=== PATIENT | male | born 1960 | race African-American/Black ===

== ENCOUNTER 2016-06-18 19:27 | Emergency (ER) | payer MEDICARE, OTHER ==
[~2016-06-18] VITALS: Ht 188 cm; Wt 101.0 kg
[2016-06-18 19:38] VITALS: BP 128/84; PULSE 81; RESP 16; TEMP 97.9; O2SAT 98
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
[2016-06-18] MEDS ORDERED: IBUP-232 PO (20:44)
[2016-06-18] MEDS ORDERED: ALLO100T PO (20:44)
[2016-06-18] MEDS ORDERED: BACT800T5 PO (20:44)
== END 2016-06-18 21:06 | disposition home or self-care (01) ==
LOC: NEPB 19:27
DX: M10.9 Gout, unspecified (principal); Z76.0 Encounter for issue of repeat prescription
CPT/HCPCS: 99281

== ENCOUNTER 2016-06-19 01:53 | Emergency (ER) | payer MEDICARE, OTHER ==
[~2016-06-19 01:53] MED LIST: ALLO100T PO; BACT800T5 PO; IBUP-232 PO
[2016-06-19 01:55] VITALS: BP 140/87; PULSE 76; RESP 16; TEMP 97.7; O2SAT 95
--- NOTE | 2016-06-19 02:12 | PD ---
HPI Chief Complaint: Pain: Acute or Chronic Time Seen by Provider: 02:07 Travel History International Travel<30 days: No Contact w/Intl Traveler<30days: No Traveled to known affect area: No History of Present Illness HPI Patient was back to the emergency Department after being seen a short time ago complaining of his continued gout pain. Patient reports the pain is making it difficult for him to walk. However he reported that he did walk 2 hours [place] Patient states he has not got his medications filled as he does not know where to get them filled. Patient denies any trauma or fevers. Patient states he's been dealing with his gout for 5 years. [facility] Past Medical History Diminished Hearing: No Gout: Yes Immunizations Current: Yes Social History Alcohol Use: No Tobacco Use: No Substance Use: No Allergies-Medications (Allergen,Severity, Reaction): Coded Allergies: No Known Allergies (Unverified , 06/19/16) Reported Meds & Prescriptions Reported Meds & Active Scripts Active Bactrim DS (Sulfamethoxazole-Trimethoprim) 800-160 Mg Tab 1 Tab PO BID Ibuprofen 600 Mg Tab 600 Mg PO Q8HR PRN Allopurinol 100 Mg Tab 100 Mg PO DAILY Review of Systems Except as stated in HPI: all other systems reviewed are Neg Physical Exam Narrative GENERAL: Well-developed, well nourished, in no acute distress, and non-ill appearing. SKIN: Warm and dry. HEAD: Atraumatic. Normocephalic. EYES: Pupils equal and round. EOMI. No scleral icterus. No injection or drainage. ENT: No nasal bleeding or discharge. Mucous membranes pink and moist. NECK: Trachea midline. Supple. No nuclear rigidity. RESPIRATORY: No accessory muscle use. No respiratory distress. MUSCULOSKELETAL: No obvious deformities. No clubbing. No cyanosis. No edema. Full range of motion. NEUROLOGICAL: Awake and alert. No obvious cranial nerve deficits. Motor grossly within normal limits. Normal speech. PSYCHIATRIC: Appropriate mood and affect; insight and judgment normal. Data Data Last Documented VS Vital Signs Date Time Temp Pulse Resp B/P Pulse Ox O2 Delivery O2 Flow Rate FiO2 06/19/16 01:55 97.7 76 16 140/87 95 Room Air Orders Colchicine (Colchicine) (06/19/16 02:15) Ibuprofen (Motrin) (06/19/16 02:15) Colchicine (Colchicine) (06/19/16 03:30) [facility] Medical Decision Making Medical Screen Exam Complete: Yes Emergency Medical Condition: No Differential Diagnosis Gout, medical noncompliance, malingering, other Narrative Course 0257 patient to be sleeping comfortably in bed in no acute distress. There is no evidence to suggest infectious, septic joint at this time. There was no significant erythema, heat, swelling or fluctuance. The patient has had no distal or local trauma, cuts or abrasions. There has been no fever. The patient has had similar episodes and has a history of gout. There is no trauma to suspect contusion, strain or fracture. There is no clinical evidence to suggest bursitis, tendonitis, osteoarthritis, Rheumatoid arthritis, or septic arthritis. The patient was instructed to take his medication as previously prescribed and the patient was instructed on ice packs as well. The patient agreed with plan. Patient in no obvious distress upon re-evaluation. Any questions/concerns in reference to patient diagnosis/condition discussed and clarified prior to patient's discharge. Reinforced sheer importance of close follow up with patient 's primary physician or primary care clinic. Instructed patient to return to ED immediately, if symptoms return/worsen. Pt showed understanding of above instructions. Further instructions and recommendations were detailed in discharge paperwork. Pt ambulated without difficulty out of ED at discharge. Diagnosis Primary Impression: Gout Qualified Code: M1A.0720 - Chronic gout of left foot, unspecified cause Patient Instructions: General Instructions, Gout (ED) Additional Instructions: Follow-up as previously instructed. Take all medication as previously prescribed. Return to the emergency department if symptoms get worse. Disposition: 01 DISCHARGE HOME Condition: Stable Clemente Elizondo Jun 19, 2016 02:11
[2016-06-19] MEDS ORDERED: COLCHICINE 0.6 MG TAB PO ONE ×2 (02:15→03:30)
[2016-06-19] MEDS ORDERED: IBUPROFEN 800 MG TAB PO ONE (02:15)
== END 2016-06-19 03:43 | disposition home or self-care (01) ==
LOC: NEPB 01:53
DX: M1A.0720 Idiopathic chronic gout, left ankle and foot, without tophus (tophi) (principal)
CPT/HCPCS: 99283

== ENCOUNTER 2018-04-22 18:30 | Observation (INO) ==
--- NOTE | 2018-04-22 21:08 | ED ---
HPI General Chief complaint: Chest Pain Stated complaint: Patient states chest pain/sob Time Seen by Provider: 04/22/18 20:50 History of Present Illness HPI narrative: The patient is a 57 year old male who presents to the [facility] emergency department with a history of left-sided chest pain and shortness of breath that he reports has been coming and going for the last day and a half. He reports having a sensation that his heart is beating fast and irregularly. He denies ever having a history of irregular heartbeat previously. He reports that he has been diagnosed with a minor heart attack 2 years ago. He reports that he did not have a stress test or a heart catheterization at that time as he refused. He reports being scared them. The patient incidentally reports that he has had some left-sided lower extremity edema over the last couple weeks with pain associated with this. He denies any prior history of DVT or PE. He reports that he is been out of all of his medications for the last 2-3 weeks including his high blood pressure medication , hyperlipidemia medication, and Plavix. The patient reports having associated nausea and vomiting x2 over the last day and a half, diarrhea x2. The patient reports that the pain is in the left side of his chest. He reports that it comes and goes and occurs randomly. He reports that the pain is a pressure sensation. He reports having associated dizziness and lightheaded sensation. On review of systems otherwise, the patient denies having any known recent fevers, cough, congestion, neck pain, abdominal pain, urinary symptoms, or other neurologic symptoms. Related Data Home Medications Medication Instructions Recorded Confirmed albuterol sulfate 1 puff INHALATION Q6H PRN 04/22/18 04/22/18 allopurinol mg PO 04/22/18 clopidogrel [Plavix] 75 mg PO DAILY 04/22/18 04/22/18 hydrocodone-acetaminophen 1 tab PO Q4-6H PRN 04/22/18 04/22/18 lisinopril mg PO DAILY 04/22/18 potassium chloride meq PO 04/22/18 Allergies Allergy/AdvReac Type Severity Reaction Status Date / Time No Known Allergies Allergy Uncoded 06/19/16 01:56 Review of Systems ROS: all other systems reviewed are negative [facility] Medical History Medical History COPD (chronic obstructive pulmonary disease) (Acute) Gout (Acute) Myocardial infarction (Acute) Social History Social History Substance History: Active Abuse Smoking Status: Former smoker How Often Do You Have a Drink Containing Alcohol: 2 to 4 times a month Recent Travel in [place] within the Last 8 Weeks: No Recent Out of Country Travel within the Last 8 Weeks: No Exam Const General: cooperative, no acute distress and well developed Nutritional Appearance: well nourished Orientation: alert, awake and oriented x3 HENMT Head: normocephalic and atraumatic Nose: no nasal discharge and no epistaxis Mouth: moist mucous membranes Throat: posterior oropharynx normal and uvula midline Eyes Sclera: normal sclerae Pupils: PERRL EOM: EOM intact bilaterally Neck Neck: no meningeal signs, trachea midline and no JVD Resp Effort & Inspection: no use of accessory muscles Auscultation: clear to auscultation bilaterally Cardio Rate: regular rate Rhythm: regular rhythm Heart Sounds: no murmurs GI Inspection: non-distended Palpation: soft, no hepatosplenomegaly, no guarding, not rigid and tender in the epigastrum; not in the LLQ, not in the RLQ, not in the LUQ, not in the RUQ, not at McBurney's point, not suprapubicly, Wharton's sign negative and with no rebound tenderness Auscultation: normal bowel sounds Back/Spine/Pelvis Back: CVA tenderness (Reported left-sided CVA tenderness on palpation.) Skin General: dry skin (warm) Neuro General: alert, awake, oriented x3 and other (Grossly nonfocal.) Speech: speech normal Motor: no movement abnormalities noted Extrem General: normal to inspection (2+ pulses in all 4 extremities.), no calf tenderness (Left-sided CVA tenderness on palpation. Reported history of ankle edema over the last 2 weeks.), no clubbing, no cyanosis and no edema Psych Mood: congruent mood Affect: normal affect Judgment: judgment good Course Initial Documented Vital Signs Temperature 98.5 F 04/22/18 18:40 Pulse Rate 60 04/22/18 18:40 Blood Pressure 151/95 H 04/22/18 18:40 Pulse Oximetry 98 04/22/18 18:40 Last Documented Vital Signs Temperature 98.2 F 04/23/18 02:45 Pulse Rate 64 04/23/18 02:45 Respiratory Rate 20 04/23/18 02:45 Blood Pressure 112/70 04/23/18 02:45 Pulse Oximetry 95 04/23/18 02:45 Medical Decision Making MDM Narrative Medical decision making narrative: During the course of the patient's emergency department visit, the patient's history, examination, and differential diagnosis were reviewed with the patient. The patient was placed on a monitoring and evaluation advisor with oximetry and frequent blood pressure monitoring. The patient had IV access obtained and blood work sent for analysis. A diagnostic evaluation was started regarding the patient's chest pain and shortness of breath. The patient was initially provided aspirin 325 mg p.o. x1, nitroglycerin sublingual x1, nitroglycerin 1 inch to the chest wall. The patient's diagnostic studies are remarkable for a white count of 7.5, hemoglobin 12.7, platelets 277 with monocytes 8.5, PT PTT within normal limits, d-dimer is elevated at 0.54, CTA to rule out PE was ordered. Chemistry reveals a chloride of 108, anion gap 3, GFR of 86, glucose 71. Initial set of cardiac enzymes are negative, lipase within normal limits, chest x-ray showed no acute abnormality. Left lower extremity ultrasound reveals no evidence of DVT, CTA reveals no evidence of pulmonary embolism. The patient will be admitted to the chest pain center for rule out serial cardiac enzyme protocol followed by stress testing. The patient's results were discussed with the patient, including the plan of care. I explained that further testing and/ or monitoring is indicated based on the patient's history, examination, and/ or laboratory findings. Therefore, I recommended admission for additional evaluation. The patient expressed understanding and was agreeable with this plan. The patient was admitted to the hospital in stable condition and sent to a bed under the care of the [facility]. Medical Screen Exam Complete: Yes Emergency Medical Condition: Yes Differential Diagnosis Differential Diagnosis: Acute coronary syndrome, versus pulmonary embolism, versus pancreatitis, versus pneumothorax, versus anxiety disorder, versus pancreatitis, versus acid reflux Medical Records Medical records reviewed: Yes I reviewed the patient's medical records. Lab Data Lab results reviewed: Yes I reviewed the patient's lab results. Result diagrams: 04/22/18 21:17 04/22/18 21:17 Lab Results 04/22/18 04/22/18 04/22/18 Range/Units 21:17 21:17 21:17 WBC 7.5 (4.0-11.0) th/mm3 RBC 4.05 L (4.50-5.90) mil/mm3 Hgb 12.7 L (13.0-17.0) gm/dL Hct 39.5 (39.0-51.0) % MCV 97.6 (80.0-100.0) fL MCH 31.2 (27.0-34.0) pg MCHC 32.0 (32.0-36.0) % RDW 14.9 (11.6-17.2) % Plt Count 277 (150-450) th/mm3 MPV 9.0 (7.0-11.0) fL Neut % (Auto) 47.2 (16.0-70.0) % Lymph % (Auto) 40.7 (9.0-44.0) % [place] % (Auto) 8.5 H (0.0-8.0) % Eos % (Auto) 3.0 (0.0-4.0) % Baso % (Auto) 0.6 (0.0-2.0) % Neut # (Auto) 3.5 (1.8-7.7) th/mm3 Lymph # (Auto) 3.0 (1.0-4.8) th/mm3 [place] # (Auto) 0.6 (0.0-0.9) th/mm3 Eos # (Auto) 0.2 (0.0-0.4) th/mm3 Baso # (Auto) 0.0 (0.0-0.2) th/mm3 WBC Differential . Differential Comment Auto diff final PT (9.8-11.6) sec INR Ratio APTT (23.4-31.7) sec D-Dimer Quant (PE/DVT) (0.00-0.50) mg/L FEU Sodium 142 (136-145) meq/L Potassium 4.5 (3.5-5.1) meq/L Chloride 108 H (98-107) meq/L Carbon Dioxide 30.9 (21.0-32.0) meq/L Anion Gap 3 L (5-15) meq/L BUN 8 (7-18) mg/dL Creatinine 1.08 (0.60-1.30) mg/dL Estimated GFR 86 L (>89) mL/min Random Glucose 71 L (74-106) mg/dL Calcium 8.7 (8.5-10.1) mg/dL Magnesium 2.1 (1.5-2.5) mg/dL Total Bilirubin 0.3 (0.2-1.0) mg/dL AST 25 (15-37) U/L ALT 27 (12-78) U/L Alkaline Phosphatase 69 (45-117) U/L Total Creatine Kinase 159 (39-308) U/L CK-MB (CK-2) 1.2 (0.5-3.6) ng/mL Troponin I Less than 0.02 L (0.02-0.05) ng/mL B-Natriuretic Peptide 31 (0-100) pg/mL Total Protein 7.4 (6.4-8.2) g/dL Albumin 3.7 (3.4-5.0) g/dL Lipase 85 (73-393) U/L 04/22/18 04/23/18 04/23/18 Range/Units 21:17 01:30 04:20 WBC (4.0-11.0) th/mm3 RBC (4.50-5.90) mil/mm3 Hgb (13.0-17.0) gm/dL Hct (39.0-51.0) % MCV (80.0-100.0) fL MCH (27.0-34.0) pg MCHC (32.0-36.0) % RDW (11.6-17.2) % Plt Count (150-450) th/mm3 MPV (7.0-11.0) fL Neut % (Auto) (16.0-70.0) % Lymph % (Auto) (9.0-44.0) % [place] % (Auto) (0.0-8.0) % Eos % (Auto) (0.0-4.0) % Baso % (Auto) (0.0-2.0) % Neut # (Auto) (1.8-7.7) th/mm3 Lymph # (Auto) (1.0-4.8) th/mm3 [place] # (Auto) (0.0-0.9) th/mm3 Eos # (Auto) (0.0-0.4) th/mm3 Baso # (Auto) (0.0-0.2) th/mm3 WBC Differential Differential Comment PT 10.7 (9.8-11.6) sec INR 1.1 Ratio APTT 25.8 (23.4-31.7) sec D-Dimer Quant (PE/DVT) 0.54 H (0.00-0.50) mg/L FEU Sodium (136-145) meq/L Potassium (3.5-5.1) meq/L Chloride (98-107) meq/L Carbon Dioxide (21.0-32.0) meq/L Anion Gap (5-15) meq/L BUN (7-18) mg/dL Creatinine (0.60-1.30) mg/dL Estimated GFR (>89) mL/min Random Glucose (74-106) mg/dL Calcium (8.5-10.1) mg/dL Magnesium (1.5-2.5) mg/dL Total Bilirubin (0.2-1.0) mg/dL AST (15-37) U/L ALT (12-78) U/L Alkaline Phosphatase (45-117) U/L Total Creatine Kinase 95 91 (39-308) U/L CK-MB (CK-2) (0.5-3.6) ng/mL Troponin I Less than 0.02 L Less than 0.02 L (0.02-0.05) ng/mL B-Natriuretic Peptide (0-100) pg/mL Total Protein (6.4-8.2) g/dL Albumin (3.4-5.0) g/dL Lipase (73-393) U/L Imaging Data Radiologist's impression: Chest X-Ray 04/22/18 20:52 CONCLUSION: No evidence of acute cardiopulmonary disease. Venous Doppler Study 04/22/18 21:03 CONCLUSION: The study is negative for lower extremity deep venous thrombosis. Chest CTA 04/23/18 00:00 CONCLUSION: This study is negative for pulmonary embolism. ECG Data Attestation: I personally reviewed and interpreted this ECG as follows: Interpretation: The patient had an EKG done on arrival that shows a sinus bradycardia heart rate of 55, QRS duration is 113 ms, QTC 421 ms. An incomplete right bundle branch block is noted. No acute ST segment elevation is noted. T waves are inverted in V1. Discharge Plan Discharge Disposition Patient Disposition: 30 Still Patient Discharge Details Diagnosis: Chest pain, rule out acute myocardial infarction Physicians Team ED Provider: Corrie Nunes Primary Care Provider: Primary Care Susan Alicia Attending Provider: Christophe Mensah Discharge Interventions Interventions: ED Discharge Assessment Last Done: 04/23/18 02:50 Vital Signs Last Done: 04/22/18 18:40 Status ED Status: Left Department Discharge Information Discharge Date/Time: 04/23/18 02:51
--- NOTE | 2018-04-22 21:13 | XR ---
EXAM DATE: 04/22/2018 9:09 PM EST AGE/SEX: 57 years / Male INDICATIONS: Chest pain. CLINICAL DATA: This is the patient's initial encounter. Patient reports that signs and symptoms have been present for 2 days and indicates a pain score of 8/10. MEDICAL/SURGICAL HISTORY: Hypertension. Chronic obstructive pulmonary disease. None. COMPARISON: No prior exams available for comparison. FINDINGS: A single AP view of the chest demonstrates the lungs to be symmetrically aerated without evidence of mass, infiltrate or effusion. The cardiomediastinal contours are unremarkable. Osseous structures a re intact. CONCLUSION: No evidence of acute cardiopulmonary disease. Electronically signed by: Hesham Kelsey MD 04/22/2018 9:11 PM EST
[2018-04-22 21:49] LABS: Baso % (Auto) 0.6 % (0.0-2.0); Eos # (Auto) 0.2 th/mm3 (0.0-0.4); Hematocrit 39.5 % (39.0-51.0); Hemoglobin 12.7 gm/dL (13.0-17.0); Lymph % (Auto) 40.7 % (9.0-44.0); Mean Corpuscular Hemoglobin 31.2 pg (27.0-34.0); Mean Corpuscular Volume 97.6 fL (80.0-100.0); Mono # (Auto) 0.6 th/mm3 (0.0-0.9); Mono % (Auto) 8.5 % (0.0-8.0); Neut # (Auto) 3.5 th/mm3 (1.8-7.7); Neut % (Auto) 47.2 % (16.0-70.0); Platelet Count 277 th/mm3 (150-450); Red Blood Count 4.05 mil/mm3 (4.50-5.90); Red Cell Distribution Width 14.9 % (11.6-17.2); White Blood Count 7.5 th/mm3 (4.0-11.0)
[2018-04-22] MEDS ORDERED: Sodium Chlor 0.9% Inj 500 ML IV.SIG ONE (22:06)
[2018-04-22 22:16] LABS: Activated Partial Thrombo Time 25.8 sec (23.4-31.7); INR 1.1 Ratio; Prothrombin Time 10.7 sec (9.8-11.6)
[2018-04-22 22:17] LABS: D-Dimer 0.54 mg/L FEU (0.00-0.50)
[2018-04-22 22:20] LABS: Alanine Aminotransferase 27 U/L (12-78)
[2018-04-22 22:25] LABS: Albumin 3.7 g/dL (3.4-5.0); Alkaline Phosphatase 69 U/L (45-117); Anion Gap 3 meq/L (5-15); Aspartate Aminotransferase 25 U/L (15-37); Blood Urea Nitrogen 8 mg/dL (7-18); Calcium 8.7 mg/dL (8.5-10.1); Carbon Dioxide 30.9 meq/L (21.0-32.0); Chloride 108 meq/L (98-107); Creatine Kinase 159 U/L (39-308); Glomerular Filtration Rate 86 mL/min (>89); Glucose,Random 71 mg/dL (74-106); Lipase 85 U/L (73-393); Magnesium 2.1 mg/dL (1.5-2.5); Sodium 142 meq/L (136-145); Total Protein 7.4 g/dL (6.4-8.2)
[2018-04-22 22:28] LABS: Potassium 4.5 meq/L (3.5-5.1)
[2018-04-22 22:40] LABS: Creatine Kinase MB 1.2 ng/mL (0.5-3.6)
--- NOTE | 2018-04-23 00:10 | US ---
EXAM DATE: 04/22/2018 11:54 PM EST AGE/SEX: 58 years / Male INDICATIONS: Left ankle swelling. CLINICAL DATA: This is the patient's initial encounter. Patient reports that signs and symptoms have been present for 2 weeks and indicates a pain score of 4/10. MEDICAL/SURGICAL HISTORY: Chronic obstructive pulmonary disease. Myocardial infarction. Gout. None. COMPARISON: No prior exams available for comparison. TECHNIQUE: Venous ultrasound of both lower extremities was performed from the inguinal ligament to t he proximal calf. Real-time, color Doppler and spectral tracing, compression and augmentation techni ques were used. FINDINGS: Normal compression of the deep venous system from the inguinal region to the proximal calf . No echogenic clot is seen. Normal response of the venous system to augmentation and respiration. CONCLUSION: The study is negative for lower extremity deep venous thrombosis. Electronically signed by: Hesham Green MD 04/23/2018 12:09 AM EST
--- NOTE | 2018-04-23 01:03 | CT ---
EXAM DATE: 04/23/2018 12:54 AM EST AGE/SEX: 58 years / Male INDICATIONS: Left side chest pain and shortness of breath. CLINICAL DATA: This is the patient's initial encounter. Patient reports that signs and symptoms have been present for 1 day and indicates a pain score of 8/10. MEDICAL/SURGICAL HISTORY: Chronic obstructive pulmonary disease. LA. None. RADIATION DOSE: 10.77 CTDI (mGy) COMPARISON: No prior exams available for comparison. TECHNIQUE: Volumetric scanning was performed using a multi-row detector CT scanner during bolus infu blaine of 75 ml Omnipaque 350 (iohexol) nonionic water-soluble contrast as a single exam dose. The nelson a was post processed with a variety of visualization algorithms including full volume maximum intensi ty projection and sliding thin slab reformation. Using automated exposure control and adjustment of the mA and/or kV according to patient size, radiation dose was kept as low as reasonably achievable t o obtain optimal diagnostic quality images. DICOM format image data is available electronically for review and comparison. FINDINGS: Pulmonary Arteries: No filling defects are seen in the pulmonary arteries out to the subsegmental ve ssels. The left and right pulmonary arteries are normal in diameter. Lung: Minimal posterior lung base atelectasis. Mild bronchiectasis. Effusion: None. Mediastinum: No evidence of mediastinal or hilar adenopathy. Other: The axilla is unremarkable. CONCLUSION: This study is negative for pulmonary embolism. Electronically signed by: Hesham Green MD 04/23/2018 1:01 AM EST
[2018-04-23] MEDS ORDERED: Acetaminophen 500 MG Tablet PO PRN (01:07)
[2018-04-23 01:57] LABS: Creatine Kinase 95 U/L (39-308)
[2018-04-23] MEDS: Sod Chloride 0.9% Inj 1,000 ML IV.CONT SCH ×2 (03:42→13:17)
[2018-04-23 05:10] LABS: Creatine Kinase 91 U/L (39-308)
--- NOTE | 2018-04-23 05:19 | ECG ---
Date Performed: 04/22/2018 Time Performed: 18:48:55 PTAGE: 57 years EKG: SINUS BRADYCARDIA INCOMPLETE RIGHT BUNDLE BRANCH BLOCK POSSIBLE LATERAL MYOCARDIAL INFARCTI ON ABNORMAL ECG NO PREVIOUS TRACING DOCTOR: Prudencio Hancock Interpretating Date/Time 04/23/2018 05:17:48
[2018-04-23 07:28] VITALS: BP 128/85; RESP 18; TEMP 98.3; O2SAT 96
--- NOTE | 2018-04-23 08:55 | P.HPCA ---
History of Present Illness Primary Care Physician: No Primary Care Physician Chief Complaint: Chest pain History of Present Illness: This is a 58-year-old male with a stated history of an PA 2 years ago, hypertension, hyperlipidemia, and tobacco abuse who presents to ED with complaint of 2 days of intermittent left-sided chest discomfort. The discomforts last anywhere from seconds to about a minute. Found nothing in particular bring on the discomfort nothing seemed to worsen or improve it when it was present. Discomfort did not radiate. He has been nauseous with them at times. Sometimes short of breath as well. Denies diaphoresis. States that he was told he should have a cardiac catheterization 2 years ago when he had the PA but he declined it. States that he left AGAINST MEDICAL ADVICE. He was on medications however for about a year. He has not been on medications for at least a month. He moved here 3 days ago. He is homeless at this time. Currently denies chest discomfort. Stated history of an PA about 2 years ago while in [place] stating a heart catheterization was recommended but he refused and left AMA. Also history of tobacco abuse, hypertension, and hyperlipidemia. Has not taken medication at least 1 month. States that both parents of CAD. Patient has been smoking a couple cigarettes a day for the past month but prior that he was smoking anywhere 3-4 pack cigarettes a day for 36 years. Has occasional alcohol. Smokes marijuana daily. Last time using cocaine was a month ago. - Diagnosis (1) Chest pain (2) Hypertension (3) Hyperlipidemia (4) Tobacco abuse (5) History of PA (myocardial infarction) (6) Noncompliance Review of Systems General: Patient denies fevers, chills, and recent travel. HEENT: Patient denies headache, sore throat, difficulty swallowing. Cardiovascular: Has the chest discomfort as mentioned above. Denies sensation of heart beating rapidly or irregularly. No syncope. Respiratory: Intermittent shortness of breath. Denies inspirational chest discomfort. Denies coughing wheezing or hemoptysis. GI: Intermittent nausea. Patient denies vomiting, diarrhea, abdominal pain, bloody stools. Musculoskeletal: Patient denies joint pain or edema. Denies calf pain or edema. Neurovascular: Patient denies numbness, tingling, weakness in extremities. Denies headache. Endocrine: Denies polyuria and polydipsia. Hematologic: Denies easy bruising. Skin: Denies rash or itching. Denies diaphoresis per PMFSH - History History Provided By: Patient - Medical History Medical History: Medical History (Last Updated 04/22/18 @ 21:37 by Gt Delgadillo) COPD (chronic obstructive pulmonary disease) Gout Myocardial infarction - Tobacco History Smoking Status: Former smoker - Alcohol History How Often Do You Have a Drink Containing Alcohol: 2 to 4 times a month - Substance Use History Substance History: Active Abuse - Substance Use Type Marijuana Status: Active - Travel History Recent Travel in the [place] Within the Last 8 Weeks: No Recent Travel Out of the Country Within the Last 8 Weeks: No - Immunization History Tetanus Immunization: <5 Years Medications and Allergies Active Medications: Active Medications Acetaminophen (Tylenol) 500 mg PO Q4H PRN PRN Reason: HEADACHE Sodium Chloride (Ns Inj) 1,000 mls @ 100 mls/hr IV.CONT .Q10H BARBARA Last Admin: 04/23/18 03:42 Dose: 100 mls/hr Ondansetron HCl (Zofran Inj) 4 mg IV.PUSH Q6H PRN PRN Reason: NAUSEA Sodium Chloride (Ns Flush) 2 ml IV.FLUSH UNSCH PRN PRN Reason: FLUSH AFTER USING IV ACCESS Sodium Chloride (Ns Flush) 2 ml IV.FLUSH BID BARBARA Sodium Chloride (Ns Flush) 2 ml IV.FLUSH PRN PRN PRN Reason: FLUSH AFTER USING IV ACCESS Allergies Allergy/AdvReac Type Severity Reaction Status Date / Time No Known Allergies Allergy Uncoded 06/19/16 01:56 Home Medications Medication Instructions Recorded Confirmed Type albuterol sulfate 1 puff INHALATION Q6H PRN 04/22/18 04/22/18 History allopurinol mg PO 04/22/18 History clopidogrel [Plavix] 75 mg PO DAILY 04/22/18 04/22/18 History hydrocodone-acetaminophen 1 tab PO Q4-6H PRN 04/22/18 04/22/18 History lisinopril mg PO DAILY 04/22/18 History potassium chloride meq PO 04/22/18 History Exam Vital signs: Vital Signs 04/22/18 18:40 04/22/18 21:24 04/23/18 00:08 Temperature 98.5 F Pulse Rate 60 60 56 L Respiratory Rate 20 18 Blood Pressure 151/95 H 156/100 H 125/81 Pulse Oximetry 98 95 97 04/23/18 02:45 04/23/18 07:27 Temperature 98.2 F 98.3 F Pulse Rate 64 54 L Respiratory Rate 20 18 Blood Pressure 112/70 128/85 Pulse Oximetry 95 96 Intake & Output 04/22/18 04/23/18 04/23/18 18:59 06:59 18:59 Intake Total 500 / 500 Balance 500 / 500 Weight 99.337 kg 99.33 kg Intake: IV 500 / 500 NS Inj 500 ML @ Wide Open IV. 500 / 500 SIG BOLUS ONE Rx#:[id number] Oral 0 / 0 Narrative: GENERAL: This is a well-nourished, well-developed patient, in no apparent distress. Patient speaks in clear complete sentences. Patient is pleasant. HEENT: Head is atraumatic and normocephalic. Neck is supple without lymphadenopathy and trachea is midline. No JVD or carotid bruits. CARDIOVASCULAR: Regular rate and rhythm without murmurs, gallops, or rubs. RESPIRATORY: Clear to auscultation. Breath sounds equal bilaterally. No wheezes , rales, or rhonchi. Chest wall is nontender. No use of accessory muscles. GASTROINTESTINAL: Abdomen is nontender, nondistended. Abdomen soft. No obvious pulsatile mass or bruit. No CVA tenderness. Strong femoral pulses bilaterally. Normal bowel sounds in all quadrants. MUSCULOSKELETAL: Patient is moving upper and lower extremities freely. No calf tenderness or edema, no Homans sign. Strong pulses in upper and lower extremities. NEUROLOGICAL: Patient is alert and oriented. Cranial nerves 2-12 are grossly intact. No focal deficits and speech is clear. SKIN: No rash and turgor is normal. Results 04/22/18 21:17 04/22/18 21:17 Cardiac Enzymes 04/22/18 04/22/18 04/23/18 Range/Units 21:17 21:17 01:30 AST 25 (15-37) U/L CK-MB (CK-2) 1.2 (0.5-3.6) ng/mL Troponin I Less than 0.02 L Less than 0.02 L (0.02-0.05) ng/mL B-Natriuretic Peptide 31 (0-100) pg/mL 04/23/18 Range/Units 04:20 AST (15-37) U/L CK-MB (CK-2) (0.5-3.6) ng/mL Troponin I Less than 0.02 L (0.02-0.05) ng/mL B-Natriuretic Peptide (0-100) pg/mL Coagulation 04/22/18 04/22/18 Range/Units 21:17 21:17 PT 10.7 (9.8-11.6) sec APTT 25.8 (23.4-31.7) sec B-Natriuretic Peptide 31 (0-100) pg/mL CBC 04/22/18 Range/Units 21:17 WBC 7.5 (4.0-11.0) th/mm3 RBC 4.05 L (4.50-5.90) mil/mm3 Hgb 12.7 L (13.0-17.0) gm/dL Hct 39.5 (39.0-51.0) % Plt Count 277 (150-450) th/mm3 Neut # (Auto) 3.5 (1.8-7.7) th/mm3 Lymph # (Auto) 3.0 (1.0-4.8) th/mm3 [place]ven # (Auto) 0.6 (0.0-0.9) th/mm3 Eos # (Auto) 0.2 (0.0-0.4) th/mm3 Baso # (Auto) 0.0 (0.0-0.2) th/mm3 Comprehensive Metabolic Panel 04/22/18 Range/Units 21:17 Sodium 142 (136-145) meq/L Potassium 4.5 (3.5-5.1) meq/L Chloride 108 H (98-107) meq/L Carbon Dioxide 30.9 (21.0-32.0) meq/L BUN 8 (7-18) mg/dL Creatinine 1.08 (0.60-1.30) mg/dL Calcium 8.7 (8.5-10.1) mg/dL AST 25 (15-37) U/L ALT 27 (12-78) U/L Alkaline Phosphatase 69 (45-117) U/L Total Protein 7.4 (6.4-8.2) g/dL Albumin 3.7 (3.4-5.0) g/dL Intake and Output 04/22/18 04/23/18 04/23/18 22:59 06:59 14:59 Intake Total 500 / 500 Balance 500 / 500 Intake: IV 500 / 500 NS Inj 500 ML @ Wide Open IV. 500 / 500 SIG BOLUS ONE Rx#:[id number] Oral 0 / 0 Other: Weight 99.337 kg 99.33 kg - Imaging and Cardiology Imaging: Impressions Chest X-Ray 04/22/18 20:52 CONCLUSION: No evidence of acute cardiopulmonary disease. Venous Doppler Study 04/22/18 21:03 CONCLUSION: The study is negative for lower extremity deep venous thrombosis. Chest CTA 04/23/18 00:00 CONCLUSION: This study is negative for pulmonary embolism. EKG interpretations - EKG EKG shows: bradycardia (EKGs are sinus bradycardia without significant ST segment depressions or elevations.) Caprini VTE Risk Assessment Caprini VTE Risk Assessment: No/Low Risk (score <= 1) Caprini Risk Assessment Model: Point Value = 1 Point Value = 2 Point Value = 3 Point Value = 5 Age 41-60 Minor surgery BMI > 25 kg/m2 Swollen legs Varicose veins or History of unexplained or recurrent spontaneous Oral contraceptives or hormone replacement Sepsis (< 1 month) Serious lung disease, including pneumonia (< 1 month) Abnormal pulmonary function Acute myocardial infarction Congestive heart failure (< 1 month) History of inflammatory bowel disease Medical patient at bed rest Age 61-74 Arthroscopic surgery Major open surgery (> 45 min) Laparoscopic surgery (> 45 min) Malignancy Confined to bed (> 72 hours) Immobilizing plaster cast Central venous access Age >= 75 History of VTE Family history of VTE Factor V Leiden Prothrombin [id number] Lupus anticoagulant Anticardiolipin antibodies Elevated serum homocysteine Heparin-induced thrombocytopenia Other congenital or acquired thrombophilia Stroke (< 1 month) Elective arthroplasty Hip, pelvis, or leg fracture Acute spinal cord injury (< 1 month) Prophylaxis Regimen: Total Risk Factor Score Risk Level Prophylaxis Regimen 0-1 Low Early ambulation 2 Moderate Order ONE of the following: *Sequential Compression Device (SCD) *Heparin 5000 units SQ BID 3-4 Higher Order ONE of the following medications: *Heparin 5000 units SQ TID *Enoxaparin/Lovenox 40 mg SQ daily (WT < 150 kg, CrCl > 30 mL/min) *Enoxaparin/Lovenox 30 mg SQ daily (WT < 150 kg, CrCl > 10-29 mL/min) *Enoxaparin/Lovenox 30 mg SQ BID (WT < 150 kg, CrCl > 30 mL/min) AND/OR *Sequential Compression Device (SCD) 5 or more Highest Order ONE of the following medications: *Heparin 5000 units SQ TID (Preferred with Epidurals) *Enoxaparin/Lovenox 40 mg SQ daily (WT < 150 kg, CrCl > 30 mL/min) *Enoxaparin/Lovenox 30 mg SQ daily (WT < 150 kg, CrCl > 10-29 mL/min) *Enoxaparin/Lovenox 30 mg SQ BID (WT < 150 kg, CrCl > 30 mL/min) AND *Sequential Compression Device (SCD) Assessment and Plan - Assessment (1) Chest pain Code(s): R07.9 - Chest pain, unspecified Status: Acute (2) Hypertension Code(s): I10 - Essential (primary) hypertension Status: Acute (3) Hyperlipidemia Code(s): E78.5 - Hyperlipidemia, unspecified Status: Acute (4) Tobacco abuse Code(s): Z72.0 - Tobacco use Status: Acute (5) History of PA (myocardial infarction) Code(s): I25.2 - Old myocardial infarction Status: Acute (6) Noncompliance Code(s): Z91.19 - Patient's noncompliance with other medical treatment and regimen Status: Acute - Plan * Chest pain: Patient has had serial cardiac enzymes and EKGs for ruling out purposes. He was seen by Dr. Downs of cardiology in the chest pain center. He will undergo a Lexiscan and be discharged home if the stress test is nonischemic with instructions to follow-up with PCP. He also has history of hypertension, hyperlipidemia, and stated history of PA but has been noncompliant with medications. He has been advised to get records from his prior physician bring them to his PCP in this area if he decides to stay and get restarted on his medications. However it does appear as if the patient may be going back to [place]. Regardless, patient will need to see his PCP or legal compliance officer rather soon to be restarted on medications. * Tobacco abuse: Patient counseled on importance of smoking cessation. Patient stable at this time. He is agreeable to this plan.
[2018-04-23] MEDS ORDERED: Regadenoson Inj 0.4 MG/5 ML Syringe IV.PUSH ONE (09:07)
[2018-04-23 11:05] VITALS: PULSE 64
--- NOTE | 2018-04-23 11:08 | NM ---
EXAM DATE: 04/23/2018 10:48 AM EST AGE/SEX: 58 years / Male INDICATIONS:Angina. Myocardial infarction Left sided chest pain with shortness of breath for two days . CLINICAL DATA: This is the patient's initial encounter. Patient reports that signs and symptoms have been present for 1 day and indicates a pain score of 5/10. MEDICAL/SURGICAL HISTORY: Chronic obstructive pulmonary disease. None. COMPARISON: No prior exams available for comparison. No external comparison. DOSE: 8.5 mCi Tc 99m Myoview at rest 26.2 mCi [id number] at stress 0.4 mg Lexiscan STRESS SYMPTOMS: Shortness of breath. EJECTION FRACTION: 61 % TECHNIQUE: The patient underwent pharmacologic stress with infusion of prescribed dose. Continuous ECG tracing was monitored during stress. Gated SPECT imaging was performed after stress and conventi onal SPECT imaging was performed at rest. The examination was performed on a SPECT/CT scanner, both attenuation and non-corrected datasets were reviewed. FINDINGS: Distribution: The maximum perfused segment at stress is in the anterolateral wall. Perfusion Study: The pattern of perfusion at stress is within normal limits. Gated Study: There are intact wall motion and wall thickening without hypokinetic or dyskinetic segm ents. The ejection fraction is calculated at 61%. RISK CATEGORY: Low (<1% Annual Motality Rate) CONCLUSION: 1. Unremarkable study. Electronically signed by: Marcio Gabriel MD 04/23/2018 11:06 AM EST
--- NOTE | 2018-04-23 16:50 | ECG ---
Date Performed: 04/23/2018 Time Performed: 04:40:49 PTAGE: 58 years EKG: SINUS BRADYCARDIA POSSIBLE LEFT ATRIAL ENLARGEMENT POSSIBLE RIGHT VENTRICULAR CONDUCTION DE LAY BORDERLINE ECG Since PREVIOUS TRACING , no significant change noted PREVIOUS TRACIN04/22/2018 18.48 DOCTOR: Maria G Downs Interpretating Date/Time 04/23/2018 16:48:46
--- NOTE | 2018-04-23 16:50 | TR ---
Date Performed: 04/23/2018 Time Performed: 09:42:05 DOCTOR: Maria G Downs DRUG LIST: CLINICAL HISTORY: CHEST PAIN REASON FOR TEST: CHEST PAIN REASON FOR ENDING: OBSERVATION: CONCLUSION: Lexiscan stress test was performed under standard four minute protocol. Radionuclid e was injected one minute prior to ending the test. No electrocardiographic abormalities were present to suggest ischemia. Nuclear imaging and interpretation are pending. COMMENTS: Lexiscan stress test was performed under standard four minute protocol. Radionuclide was injected one minute prior to ending the test. No electrocardiographic abormalities were present t o suggest ischemia. Nuclear imaging and interpretation are pending.
--- NOTE | 2018-04-23 16:51 | ECG ---
Date Performed: 04/23/2018 Time Performed: 01:40:26 PTAGE: 58 years EKG: SINUS BRADYCARDIA POSSIBLE RIGHT VENTRICULAR CONDUCTION DELAY POSSIBLE LATERAL MYOCARDIAL I NFARCTION ABNORMAL ECG Since PREVIOUS TRACING , no significant change noted PREVIOUS TRACIN04/22/2018 18.48 DOCTOR: Maria G Downs Interpretating Date/Time 04/23/2018 16:49:49
== END 2018-04-23 14:21 | disposition home or self-care (01) ==
LOC: NEDA 18:30 → NEPC 18:30 → NEPHCDU 04-23 02:26
PROVIDERS: ADMIT Internal Medicine Cardiovascular Disease; ATTEND Internal Medicine Cardiovascular Disease